=== PATIENT | female | born 1940 | race Caucasian/White ===

== ENCOUNTER 2016-12-08 09:08 | Outpatient (CLI) ==
[2015-01-05 14:37] VITALS: BMI 24.7
--- NOTE | 2016-12-08 10:00 | US ---
EXAM: Ultrasound Aorta HISTORY: History of abdominal aortic aneurysm repair COMPARISON: 10/30/2015 TECHNIQUE: Ultrasound aorta was performed. FINDINGS: Evaluation is limited due to areas of bowel gas shadowing. Measurements are AP by transverse. Proximal aorta: 2.2 x 2.3 cm, previously 2.1 x 2.2 cm Mid aorta: 3.0 x 3.0 cm, previously 2.8 x 3.5 cm Distal aorta: 2.6 x 2.7 cm, previously 2.3 x 2.8 cm Right iliac: Not visualized due to bowel gas shadowing Left iliac: Not visualized due to bowel gas shadowing IMPRESSION: Aneurysmal dilation abdominal aorta measuring up to 3.0 cm. By history, patient has had prior abdominal aortic aneurysm repair.
--- NOTE | 2016-12-10 07:28 | MAMMO ---
EXAM: Digital screening mammogram HISTORY: Annual screening mammogram COMPARISON: Mammogram 03/16/2013 and 09/09/2011 FINDINGS: Bilateral CC and MLO views of the breasts were performed digitally and demonstrate hetero geneous breast density (50 - 75%). Evaluation is limited due to breast density. Nodular density in the outer left breast on LCC is unchanged dating back to 2010. There is no significant interval tequila nge. IMPRESSION: No new or suspicious nodule or calcification RECOMMENDATION: Annual screening mammogram BIRADS category II: Benign findings
== END 2016-12-08 09:09 | disposition home or self-care (01) ==
LOC: RAD 09:08
PROVIDERS: ATTEND Internal Medicine
DX: Z12.31 Encounter for screening mammogram for malignant neoplasm of breast (principal); I71.4 Abdominal aortic aneurysm, without rupture; Z98.890 Other specified postprocedural states
CPT/HCPCS: 76775

== ENCOUNTER 2018-01-25 06:42 | Day surgery (SDC) ==
[2015-01-05 14:37] VITALS: BMI 24.7
[2018-01-25 07:56] VITALS: TEMP 98.6
[2018-01-25] MEDS ORDERED: LIDOCAINE 1% 20 ML MDV ID STA (07:58)
[2018-01-25] MEDS ORDERED: DIPRIVAN 20 ML VIAL IVP ONE (09:00)
[2018-01-25] MEDS ORDERED: VERSED ONE (09:00)
--- NOTE | 2018-01-26 09:05 | OP ---
PROCEDURE: COLONOSCOPY TO THE CECUM WITH SNARE POLYPECTOMY. ENDOSCOPIST: Bren JACOB M.D. INDICATION: HISTORY OF POLYPS. INSTRUMENT: [employer]-190. MEDICATION: PER ANESTHESIA. PROCEDURE: The patient was positioned for colonoscopy. The digital rectal exam was negative. The colonoscope was inserted through the anus and advanced to the cecum. The cecum was identified using the ileocecal valve and the appendiceal orifice as landmarks. The scope was slowly withdrawn through an adequately prepped colon. [place] Bowel Prep Score = 9. Two polyps removed at the hepatic flexure, a 6 mm polyp and a 10 mm polyp both removed using snare cautery. The retroflex exam was otherwise normal. Diverticular disease noted in the left colon. The patient tolerated the procedure without immediate complication. Withdrawal time 9 minutes and 10 seconds. PLAN: 1. Review pathology with repeat colonoscopy in three years. CC: DR. XAVI ROBINS
[2018-01-26 13:48] VITALS: BP 146/65
== END 2018-01-25 09:55 | disposition home or self-care (01) ==
LOC: SURG 06:42
PROVIDERS: ATTEND Internal Medicine Gastroenterology
DX: Z09 Encounter for follow-up examination after completed treatment for conditions other than malignant neoplasm (principal); Z86.010 Personal history of colon polyps; D12.3 Benign neoplasm of transverse colon; K57.30 Diverticulosis of large intestine without perforation or abscess without bleeding

== ENCOUNTER 2020-07-17 09:51 | Inpatient (IN) ==
[2020-07-17] MEDS ORDERED: NITROSTAT SL PRN (10:01)
[2020-07-17] MEDS ORDERED: VISTARIL INJ IM PRN (10:01)
[2020-07-17] MEDS ORDERED: ATROPINE SULFATE PFS IVP PRN (10:01)
[2020-07-17] MEDS ORDERED: TYLENOL PO PRN (10:01)
[2020-07-17 10:27] LABS: ABG PH 7.509 (7.35-7.45)
[2020-07-17 10:28] LABS: ABG BASE EXCESS -4 (-2.0-2.0); ABG HCO3 19.5 (22.0-26.0); ABG PCO2 24.5 mmHg (35-45); ABG TCO2 20 (22.0-28.0)
[2020-07-17 10:53] VITALS: BMI 22.4
[2020-07-17 11:02] LABS: BASOPHILS % (AUTO) 0.2 % (0.0-3.0); EOSINOPHILS # (AUTO) 0.1 K/ul (0.0-0.7); EOSINOPHILS % (AUTO) 0.7 % (0.0-7.0); HEMATOCRIT 26.4 % (37.0-47.0); HEMOGLOBIN 8.2 g/dl (12.0-16.0); IMMATURE GRANULOCYTE # (AUTO) 0.2 (0.0-1.0); IMMATURE GRANULOCYTE % (AUTO) 1.2 % (0.0-5.0); LYMPHOCYTES % (AUTO) 8.2 (10.0-50.0); MEAN CORPUSCULAR HGB CONC 31.1 (31.8-35.4); MEAN CORPUSCULAR VOLUME 84.1 fl (81.0-99.0); MONOCYTES # (AUTO) 0.8 K/uL (0.4-2.0); MONOCYTES % (AUTO) 6.2 (0-10); NEUTROPHILS # (AUTO) 10.4 K/ul (2.0-6.9); NEUTROPHILS % (AUTO) 83.5 % (42.2-75.2); PLATELET COUNT 264 10^3/uL (140-440); RDW COEFFICIENT OF VARIATION 13.6 % (11.6-14.8); RED BLOOD COUNT 3.14 10^6/ul (4.20-5.40); RETICULOCYTE % 1.76 %; RETICULOCYTE HEMOGLOBIN 23.9; WHITE BLOOD COUNT 12.39 K/ul (4.6-10.2)
[2020-07-17 11:14] LABS: ALANINE AMINOTRANSFERASE 26.9 U/L (0-35); ALBUMIN 3.2 g/dL (3.5-5.0); ALKALINE PHOSPHATASE 227.4 U/L (53-141); BLOOD UREA NITROGEN 40.6 mg/dL (7-17); CALCIUM 8.89 mg/dL (8.4-10.2); CARBON DIOXIDE 24.4 mmol/L (22-30.0); CHLORIDE 98.6 mmol/L (98-107); CREATININE 1.87 mg/dL (0.60-1.30); GLUCOSE 273.5 mg/dL (74-106); TOTAL PROTEIN 6.2 g/dL (6.3-8.2)
[2020-07-17 11:15] LABS: BILIRUBIN,TOTAL 0.88 mg/dL (0.2-1.3); CREATINE KINASE 37.6 U/L (30-135)
[2020-07-17 11:28] LABS: IRON 22.4 ug/dL (37-170)
[2020-07-17] MEDS ORDERED: CALCIUM 500 + VIT D 5 MCG (200 IU) TABLET PO SCH (11:30)
[2020-07-17] MEDS: HUMULIN R SUBCUT PRN ×3 (11:35→20:41)
[2020-07-17 11:37] LABS: % IRON SATURATION 9 %; TOTAL IRON BINDING CAPACITY 237 ug/dL (261-497)
[2020-07-17] MEDS: SODIUM CHLORIDE 1,000 ML IV SCH (12:17)
[2020-07-17 12:21] LABS: FOLATE > 20.00 ng/mL
[2020-07-17] MEDS: TRIGLIDE PO SCH (13:34)
[2020-07-17] MEDS: ZESTRIL PO SCH (13:34)
[2020-07-17] MEDS: ZOCOR PO SCH (13:34)
[2020-07-17] MEDS: MULTIVITAMIN TABLET PO SCH (13:35)
[2020-07-17] MEDS: FERROUS SULFATE PO SCH (13:35)
[2020-07-17] MEDS: COREG PO SCH (13:35)
[2020-07-17 13:59] LABS: BILIRUBIN,URINE Negative (NEGATIVE); CLARITY,URINE Clear (CLEAR); COLOR,URINE Yellow (YELLOW); GLUCOSE, URINE (UA) 2+ (NEGATIVE); KETONES,URINE Negative (NEGATIVE); LEUKOCYTE ESTERASE ,URINE Negative (NEGATIVE); NITRITE,URINE Negative (NEGATIVE); PH,URINE 6.5 (5-9); URINE, BLOOD Negative (NEGATIVE); UROBILINOGEN,URINE 0.2 (0.2)
--- NOTE | 2020-07-17 14:10 | CT ---
EXAM: CT of the chest without contrast History: Short of breath Comparison: CT abdomen pelvis 07/17/2020 Technique: Multiplanar CT images through the thorax were obtained without the administration of IV c ontrast Findings: Heart is mildly enlarged. Coronary calcifications. No thoracic aortic aneurysm. No chio cardial effusion. No axillary or mediastinal lymphadenopathy. Evaluation for hilar lymph nodes is l imited due to lack of contrast administration. There is no consolidated pneumonia. Multiple sub-therese timeter bilateral lung nodules measuring up to 8 mm bilaterally. No pleural fluid and no pneumothora x. For details in the upper abdomen, please see dedicated CT abdomen pelvis done on the same day. There are multiple metastatic liver lesions and there is inflammation adjacent to the pancreas. No acute osseous abnormalities. Impression: 1. Multiple sub-centimeter bilateral lung nodules are suspicious for metastasis. 2. Coronary artery disease 3. Liver metastasis
--- NOTE | 2020-07-17 14:26 | CT ---
Exam: CT abdomen pelvis without intravenous contrast. Comparison: 05/05/2019. Reason for exam: Anemia. FINDINGS: Image interpretation is limited by the lack of intravenous contrast. Parenchymal change consistent with chronic lung disease with multiple nodules in the partially imaged lung bases measuring up to 7 mm as seen on axial image #6 and 6.6 mm on axial image #9. Nodularity is seen in both left and right lung bases. Hepatic hypodensities are seen throughout the liver parenchyma. The spleen and adrenal glands appear grossly unremarkable. The tail and mid body of the pancreas appear enlarged with inflammatory changes seen adjacent to the pancreatic tail. Calcifications are seen in both left and right renal vasculature. No obvious ureterolithiasis or hyd ronephrosis. Hypodensities are seen in the splenic parenchyma with old granulomas disease. No evidence of bowel o bstruction. No bladder wall thickening. Ground-glass nodularity is seen within the mesenteric fat as seen on axial image 71. Partially calci fied infrarenal abdominal aortic aneurysm measuring up to 4.8 cm. Diverticular disease in the rectosigmoid without surrounding inflammatory change. Grade 1 anterior listhesis of L4 on L5. Impression: 1. Unexpected finding/unexpected result: Multiple hepatic hypodensities are seen throughout the zack er parenchyma incompletely characterized on this exam. Imaging findings are concerning for metastati c disease. Further evaluation is recommended. 2. Prominence of the mid body and tail of the pancreas. Findings can be seen with pseudocyst format ion, inflammation, and neoplasia. Further evaluation with MRI is recommended. 3. Multiple sub centimeter nodules are seen throughout the partially imaged right and left lower lob es. Please see CT imaging of the chest performed on the same day for further characterization. Findings are concern ing for metastatic disease.
--- NOTE | 2020-07-17 16:29 | CT ---
EXAM: CT of the head without contrast History: Weakness. Technique: Multiplanar CT images through the head were obtained without the administration of IV con trast Findings: The visualized paranasal sinuses and mastoid air cells are clear in general. No acute fatuma varial abnormalities. Intracranially the ventricular and cisternal spaces are normal in size, shape and configuration for a patient of this age. No dominant mass or midline shift. No hydrocephalous. No acute intracranial hemorrhage or abnormal extraaxial fluid collections. Impression: No acute intracranial process
[2020-07-17 19:15] LABS: CREATINE KINASE 29.2 U/L (30-135)
[2020-07-18] MEDS: SODIUM CHLORIDE 1,000 ML IV SCH (02:03)
[2020-07-18 05:27] LABS: BASOPHILS % (AUTO) 0.1 % (0.0-3.0); EOSINOPHILS # (AUTO) 0.2 K/ul (0.0-0.7); EOSINOPHILS % (AUTO) 1.9 % (0.0-7.0); HEMATOCRIT 21.9 % (37.0-47.0); HEMOGLOBIN 6.8 g/dl (12.0-16.0); IMMATURE GRANULOCYTE # (AUTO) 0.1 (0.0-1.0); IMMATURE GRANULOCYTE % (AUTO) 1.2 % (0.0-5.0); LYMPHOCYTES # (AUTO) 1.3 K/uL (0.60-3.4); MEAN CORPUSCULAR HGB CONC 31.1 (31.8-35.4); MEAN CORPUSCULAR VOLUME 83.6 fl (81.0-99.0); MONOCYTES # (AUTO) 0.7 K/uL (0.4-2.0); NEUTROPHILS # (AUTO) 6.6 K/ul (2.0-6.9); NEUTROPHILS % (AUTO) 73.8 % (42.2-75.2); PLATELET COUNT 199 10^3/uL (140-440); RDW COEFFICIENT OF VARIATION 13.6 % (11.6-14.8); RED BLOOD COUNT 2.62 10^6/ul (4.20-5.40); WHITE BLOOD COUNT 8.95 K/ul (4.6-10.2)
[2020-07-18 05:40] LABS: ALANINE AMINOTRANSFERASE 23.6 U/L (0-35); ALBUMIN 2.52 g/dL (3.5-5.0); ALKALINE PHOSPHATASE 192.7 U/L (53-141); ASPARTATE AMINO TRANSFERASE 46.5 U/L (14-36); BILIRUBIN,TOTAL 0.49 mg/dL (0.2-1.3); BLOOD UREA NITROGEN 35.9 mg/dL (7-17); CALCIUM 8.1 mg/dL (8.4-10.2); CARBON DIOXIDE 21.7 mmol/L (22-30.0); CHLORIDE 105.8 mmol/L (98-107); CREATININE 1.6 mg/dL (0.60-1.30); GLUCOSE 151.9 mg/dL (74-106); SODIUM 133.8 mmol/L (134.5-145); TOTAL PROTEIN 5.2 g/dL (6.3-8.2)
[2020-07-18] MEDS: HUMULIN R SUBCUT PRN (06:06)
[2020-07-18] MEDS ORDERED: NON-FORMULARY MEDICATION (Cyanocobalamin (Vitamin B-12) Tablet,Chewable) PO SCH (09:00)
[2020-07-18] MEDS ORDERED: CALCIUM CARBONATE VITAMIN D3 PO SCH (09:00)
[2020-07-18] MEDS ORDERED: [UNRECOGNIZED DRUG - OTHER] PO SCH (09:00)
[2020-07-18] MEDS: COREG PO SCH (09:20)
[2020-07-18] MEDS: ZESTRIL PO SCH (09:20)
--- NOTE | 2020-07-18 11:57 | HP ---
DATE OF SERVICE: 07/17/2020 REASON FOR HOSPITALIZATION/HISTORY OF PRESENT ILLNESS: 79 year old female admitted with shortness of breath, very weak and legs swollen. PAST MEDICAL HISTORY/PAST SURGICAL HISTORY: PAD, abnormal arterial study COPD Generalized ASHD Osteoarthritis knees, right greater than left AAA 12-15 Dr. Carpenter Left carotid stenosis Diabetes Mellitus type 2, A1c 9.2 04/14 Dyslipidemia Status post right pneumonectomy MAGI B12 deficiency Depression History of lung cancer History of hip pain Chronic kidney disease, stage 4 REVIEW OF SYSTEMS: CONSTITUTIONAL: No fever, Fatigue. HEENT: No sinus drainage, no sore throat. RESPIRATORY: Cough, no congestion. CARDIOVASCULAR: No atypical chest pain for coronary artery disease. No angina, CHF symptoms, palpitations. Shortness of breath. GASTROINTESTINAL: No melena or abdominal pain. No GERD. GENITOURINARY: No hematuria, no prostatism, no polyuria. MANAGER ELIGIBILITY: No blackout, no dizziness, no headache, no double vision. GAIT: Unsteady. MUSCULOSKELETAL: Osteoarthritis pain, no joint swelling. ENDOCRINE: No weight loss, Weight gain, 3 pounds. . SKIN: Not dry, no rash. PSYCHIATRIC: Not anxious, no depression, no suicidal thoughts, no homicidal thoughts. SOCIAL HISTORY: Marital Status: . Alcohol Usage: No. Tobacco Usage: No. MEDICATIONS: Fenofibrate 160mg PO daily Jardiance 25mg daily Coreg 12.5mg daily Lisinopril 10mg daily Simvastatin 40mg PO daily Iron 65mg PO daily B12 500mcg Calcium 600 with Vitamin D3 20mg Aspirin 81mg PO daily Lasix 20mg 2-3 weekly PRN ALLERGIES: No known allergies. PHYSICAL EXAMINATION: V/S: Pulse 106, blood pressure 122/64, temperature 98.1, oxygen saturation 99%. BMI 22.8, Weight 130. GENERAL APPEARANCE: Oriented times three. HEENT: Pale. NECK: No JVP, no bruits. RESPIRATORY: Decreased breath sounds. CARDIOVASCULAR: S1, S2, no S3, no murmur. No cyanosis, clubbing. No ascites. GI/ABDOMEN: No tenderness. Bowel sounds are active. EXTREMITIES: +2 bilateral lower extremity edema, pulses +1, equal. MANAGER ELIGIBILITY: Deep tendon reflexes, sensory, motor and gait all normal. RECTAL/PELVIC/PROSTATE: . ASSESSMENT: 1. Symptomatic anemia 2. Shortness of breath 3. Acute renal failure 4. Leg edema 5. PAD, abnormal arterial study 6. COPD 7. Generalized ASHD 8. Osteoarthritis knees, right greater than left 9. AAA 12-15 Dr. Carpenter 10.Left carotid stenosis 11.Diabetes Mellitus type 2, A1c 9.2 04/14 12. Dyslipidemia 13. Status post right pneumonectomy 14. MAGI 15. B12 deficiency 16. Depression 17. History of lung cancer 18. History of hip pain 19. Chronic kidney disease, stage 4 PLAN: 1. Admit 2. Routine telemetry orders 3. CBC and CMP now and daily 4. ABG on room air now 5. Anemia profile 6. CT chest, abdomen and pelvis without contrast 7. Start normal saline at 75cc an hour 8. Continue home medication 9. Hold PO Lasix 10.2D echo 11.O2 at 1-2 liters normal saline PRN 12.Elevate legs 13.Regular diet 14.Dr. Garvey sliding scale 15.Type and cross two units PRBC's and hold TIME SPENT: More than 70 minutes. MTDD
[2020-07-18] MEDS: MULTIVITAMIN TABLET PO SCH (15:06)
[2020-07-18] MEDS: JARDIANCE PO SCH (15:07)
[2020-07-18] MEDS: ZOCOR PO SCH (15:08)
[2020-07-18] MEDS: ASPIRIN EC PO SCH (15:08)
[2020-07-18] MEDS: FERROUS SULFATE PO SCH (15:09)
[2020-07-18] MEDS: TRIGLIDE PO SCH (15:09)
[2020-07-18] MEDS: NON-FORMULARY MEDICATION (Cyanocobalamin (Vitamin B-12) 500 mcg Tablet) PO SCH (15:10)
--- NOTE | 2020-07-18 16:10 | MRI ---
EXAM: MRI abdomen without and with contrast/MRCP HISTORY: Attention pancreas, prominence of the mid pancreatic body and tail TECHNIQUE: Multiplanar, multisequence without and following the administration of intravenous Dotare m, 5 mL using a dynamic contrast enhanced protocol. MRCP is acquired with 3-D volume rendered images of the biliary tree. COMPARISON: CT abdomen from 07/17/2020 FINDINGS: The images are limited due to a low field strength open magnet and respiratory motion sid fact. The heart size is normal. No pericardial or pleural effusions are appreciated. There is evidence of fat or iron deposition within the liver. There are multiple hypodense metastati c lesions throughout the liver. Lesion hepatic segment II/III is 3.9 x 2.9 cm. A lesion in hepatic segment VII is 3.9 x 3.7 cm. Multiple additional smaller lesions are noted throughout the liver. Th e lesions are hyperenhancing and demonstrate diffusion restriction. These lesions have intermediate increased T2 signal. There is a lesion in the pancreatic tail demonstrate diffusion restriction and hypo enhancement measu ring 2.8 x 2.7 x 2.1 cm. The pancreas otherwise has normal signal. The gallbladder is free of intraluminal filling defects. There is no biliary dilatation. The pancre atic duct has normal signal. The spleen has normal size and signal. The adrenal glands are normal. No suspicious renal lesions a re evident. There is no ureteral pelvicaliectasis. A few simple acquired renal cysts are suggested. A fusiform infrarenal abdominal aortic aneurysm is 35.6 x 45.5 mm. A small volume of ascites is note d diffusely. No suspicious lymphadenopathy is detected. The visible intestines have normal signal and caliber without evidence of obstruction or acute inflam mation. Diverticula arise from large bowel without MR evidence of diverticulitis. A few benign vertebral hemangiomas are suggested. There are modic endplate signal changes. No suspi cious marrow signal is visualized. IMPRESSION: 1. Multiple metastatic hepatic lesions. 2. Lesion at the tail the pancreas could represent primary pancreatic adenocarcinoma or metastatic l esion. 3. Small volume of ascites. 4. Fusiform infrarenal abdominal aneurysm measuring 35.6 x 45.5 mm. 5. Colonic diverticulosis without MR evidence of diverticulitis. 6. Exam limited by low field magnet strength and patient respiratory motion.
[2020-07-19] MEDS: SODIUM CHLORIDE 1,000 ML IV SCH ×2 (01:38→09:36)
[2020-07-19 05:43] VITALS: BP 127/67; TEMP 98.1
[2020-07-19 05:48] LABS: BASOPHILS % (AUTO) 0.3 % (0.0-3.0); EOSINOPHILS # (AUTO) 0.3 K/ul (0.0-0.7); EOSINOPHILS % (AUTO) 2.5 % (0.0-7.0); HEMATOCRIT 30.4 % (37.0-47.0); HEMOGLOBIN 9.7 g/dl (12.0-16.0); IMMATURE GRANULOCYTE # (AUTO) 0.2 (0.0-1.0); IMMATURE GRANULOCYTE % (AUTO) 1.5 % (0.0-5.0); LYMPHOCYTES # (AUTO) 1.6 K/uL (0.60-3.4); LYMPHOCYTES % (AUTO) 13.3 (10.0-50.0); MEAN CORPUSCULAR HGB CONC 31.9 (31.8-35.4); MEAN CORPUSCULAR VOLUME 85.9 fl (81.0-99.0); MONOCYTES % (AUTO) 8.3 (0-10); NEUTROPHILS % (AUTO) 74.1 % (42.2-75.2); PLATELET COUNT 202 10^3/uL (140-440); RED BLOOD COUNT 3.54 10^6/ul (4.20-5.40); WHITE BLOOD COUNT 12.18 K/ul (4.6-10.2)
[2020-07-19 06:04] LABS: ALANINE AMINOTRANSFERASE 31.8 U/L (0-35); ALBUMIN 2.42 g/dL (3.5-5.0); ALKALINE PHOSPHATASE 224.4 U/L (53-141); ASPARTATE AMINO TRANSFERASE 64.9 U/L (14-36); BILIRUBIN,TOTAL 1.08 mg/dL (0.2-1.3); BLOOD UREA NITROGEN 28.6 mg/dL (7-17); CALCIUM 8.27 mg/dL (8.4-10.2); CARBON DIOXIDE 20.5 mmol/L (22-30.0); CHLORIDE 105.9 mmol/L (98-107); CREATININE 1.4 mg/dL (0.60-1.30); GLUCOSE 161.1 mg/dL (74-106); SODIUM 133.1 mmol/L (134.5-145); TOTAL PROTEIN 5.03 g/dL (6.3-8.2)
[2020-07-19] MEDS ORDERED: LASIX IVP STA (08:09)
--- NOTE | 2020-07-19 08:44 | PN ---
DATE OF SERVICE: 07/18/2020 SUBJECTIVE: 79 year old white female hospitalized with symptomatic anemia. The patient's hgb is down to 6.8, hct 21.9. She is feeling extremely tired and weakness with shortness of breath. She is going to have type and cross match and two units to be transfused after her MRI is done. The patient's daughter, Debbie is present in the room and the patient to be discussed with her also. REVIEW OF SYSTEMS: CONSTITUTIONAL: No night sweats. No fever or chills. Weakness and fatigue. HEENT: Eyes: No visual changes. No eye pain. No eye discharge. ENT: No runny nose. No epistaxis. No sinus pain. No sore throat. No odynophagia. No congestion. RESPIRATORY: No cough, no congestion. No hemoptysis. Shortness of breath on exertion. CARDIOVASCULAR: No angina symptoms. No CHF symptoms. No atypical chest pain for CAD. No palpitations. No PND. No orthopnea. GASTROINTESTINAL: No abdominal pain. No nausea or vomiting. No diarrhea or constipation. No hematemesis. No hematochezia. Appetite is not that good for while. GENITOURINARY: No urgency. No frequency. No dysuria. No hematuria. No obstructive symptoms. No discharge. No pain. No significant abnormal bleeding. MUSCULOSKELETAL: No musculoskeletal pain; no joint swelling. Weakness by the patient, generalized. NEUROLOGICAL: No headache. No neck pain. No syncope. No seizures. No dizziness. PSYCHIATRIC: Not anxious. No depression. No suicidal thoughts. No homicidal thoughts. SKIN: No rash. No lesions. No wounds. ENDOCRINE: Weight loss. No weight gain. HEMATOLOGIC/LYMPHATIC: No purpura. No petechiae. No prolonged or excessive bleeding. No palpable lymph nodes. PHYSICAL EXAMINATION: VITAL SIGNS: [id number] 98.2, pulse 26, respiratory rate 20, blood pressure 117/68 and pulse ox 99%. HEENT: Head normocephalic, atraumatic. Eyes: Extraocular muscles are intact. Pupils are equal, round and reactive to light and accommodation. Ears: No lesions. Nose appeared normal. Throat: No exudate or erythema. NECK: Supple. No JVD, no carotid bruit. No lymphadenopathy or thyromegaly. LUNGS: Clear to auscultation. Percussion note normal. Chest symmetrical. HEART: S1, S2, no S3. No murmurs. No cyanosis or clubbing. No ascites. Pulses: Dorsalis pedis and posterior tibial pulses +1 to +2 bilaterally. ABDOMEN: Soft. Nontender. Bowel sounds active. No CVA tenderness. No mass felt. EXTREMITIES: No edema. Full range of motion of all extremities, equal. NEUROLOGIC: No focal deficit. Cranial nerves II through XII are grossly intact. No headache, no double vision or headache. SKIN: Not dry. Intact. Turgor - normal. The patient looks pale. LYMPHATIC: No palpable lymph nodes/no lymphedema. MUSCULOSKELETAL: Normal joints with no swelling. Muscle tone is normal. LABS: hgb 6.8, hct 21.9, WBC 8,900 normal differential, creatinine 1.6, BUN 35, potassium 4 ASSESSMENT: 1. Anemia likely from metastatic cancer of the lung and liver likely primary is pancreatic cancer 2. Kidney failure has improved, estimated GFR now is 31 with creatinine of 1.6. It was 2.2 begin with. The patient and daughter, Debbie were explained in detail about metastatic cancer of the lung and liver primary being likely in pancreas. Reports still pending when I talked to them but CT of the abdomen did reveal possibility of pancreatic cancer. The patient's sister had pancreatic cancer. A couple of years the patient has declined any procedures. Lately she has declined workup for her medical problems she had. In face she was very reluctant to get into the hospital. Already had Dr. Yi appointment scheduled because of work up for anemia, she had declined any EGD or colonoscopy. She may not need now. The patient's prognosis is poor. Explained to both the patient and the daughter. CONDITION: Stable. TIME SPENT: More than 60 minutes. EXTENSIVE Plan and coordination of the patient's care discussed in the presence of nurse. SHIMON
[2020-07-19] MEDS: JARDIANCE PO SCH (08:46)
[2020-07-19] MEDS: ZOCOR PO SCH (08:46)
[2020-07-19] MEDS: NON-FORMULARY MEDICATION (Cyanocobalamin (Vitamin B-12) 500 mcg Tablet) PO SCH (08:46)
[2020-07-19] MEDS: FERROUS SULFATE PO SCH (08:47)
[2020-07-19] MEDS: TRIGLIDE PO SCH (08:47)
[2020-07-19] MEDS: ZESTRIL PO SCH (08:47)
[2020-07-19] MEDS: COREG PO SCH (08:47)
[2020-07-19] MEDS: ASPIRIN EC PO SCH (08:47)
[2020-07-19] MEDS: MULTIVITAMIN TABLET PO SCH (08:47)
--- NOTE | 2020-07-19 11:32 | CM.DICTOOL ---
ADMISSION: 07/17/20 09:51 DISCHARGE: 2019 DATE OF SERVICE: 07/19/20 FINAL DIAGNOSIS SYMPTOMATIC ANEMIA, TRANSFUSION 2 UNITS PACKED CELLS METASTATIC LIVER LESIONS, MULTIPLE PER MRI PANCREATIC LESION, ADENOCARCINOMA VS METASTATIC LESION BILATERAL LUNG NODULES, LIKELY METASTATIC HISTORY: LUNG CANCER, RIGHT UPPER LOBE CAD COPD CKD, STAGE 4 ASHD AAA, 35.6 X 45.5 MM CAROTID STENOSIS, LEFT DIABETES, TYPE 2 (A1C 9.27 MARCH 2020) DYSLIPIDEMIA GENERALIZED ANXIETY DISORDER B12 DEFICIENCY DEPRESSION DIVERTICULOSIS HISTORY OF HEPATITIS B LEFT NEPHROLITHIASIS, NON-OBSTRUCTING OSTEOARTHRITIS, KNEES PERIPHERAL ARTERY DISEASE (ABNORMAL ARTERIAL STUDY) LOBECTOMY, RIGHT UPPER LOBE HYSTERECTOMY COLONOSCOPY, DR. JACOB (2018) LAST VITALS Temp Pulse Resp BP Pulse Ox 98.1 F 97 H 24 127/67 97 07/19/20 05:41 07/19/20 05:41 07/19/20 05:41 07/19/20 05:41 07/19/20 09:59 TAKE THESE MEDICATIONS AT HOME Acetaminophen (Acetaminophen 1000 Mg Tablet) 650 mg PO Q6H PRN PRN Reason: /Headache/Pain Aspirin (Aspirin 81 Mg Tablet.) 81 mg PO DAILYWM [facility] Last Admin: 07/19/20 08:47 Dose: 81 mg Documented by: Lasix 20 mg PO 2-3 TIMES PER WEEK PRN LEG SWELLING Last Admin: 20 mg IV 07/19/2020 Carvedilol (Carvedilol 12.5 Mg Tablet) 12.5 mg PO DAILYWM [facility] Last Admin: 07/19/20 08:47 Dose: 12.5 mg Documented by: Empagliflozin (Empagliflozin 10 Mg Tablet) 25 mg PO DAILY [facility] Last Admin: 07/19/20 08:46 Dose: 25 mg Documented by: Fenofibrate (Fenofibrate 160 Mg Tablet) 160 mg PO DAILY [facility] Last Admin: 07/19/20 08:47 Dose: 160 mg Documented by: Ferrous Sulfate (Ferrous Sulfate 324 Mg Tablet.) 324 mg PO DAILY [facility] Last Admin: 07/19/20 08:47 Dose: 324 mg Documented by: Lisinopril (Lisinopril 10 Mg Tablet) 10 mg PO DAILY [facility] Last Admin: 07/19/20 08:47 Dose: 10 mg Documented by: Multivitamins (Multivitamin 1 Tab) 1 tab PO DAILY [facility] Last Admin: 07/19/20 08:47 Dose: 1 tab Documented by: Non-Formulary Medication (Ca-D3-Mag Ov-Ifwz-Ano-Sloan-Bor [Calcium 600-D3 Plus (Mag-Zinc)]) 1 tab PO DAILY [facility] Last Admin: 07/19/20 08:46 Dose: 1 tab Documented by: Non-Formulary Medication (Cyanocobalamin (Vitamin B-12)) 500 mcg PO DAILY [facility] Last Admin: 07/19/20 08:46 Dose: 500 mcg Documented by: Simvastatin (Simvastatin 40 Mg Tablet) 40 mg PO DAILY [facility] Last Admin: 07/19/20 08:46 Dose: 40 mg Documented by: ALLERGIES No Known Allergies Allergy (Verified 05/16/20 09:05) DISCONTINUED MEDICATIONS NONE NEW PRESCRIPTIONS: NONE SMOKING: NOT APPLICABLE DISEASE SPECIFIC EDUCATION: TEST RESULTS DISCUSSED WITH PATIENT AND FAMILY MEMBERS APPOINTMENTS LAB REVIEW: 07/19/20 05:28 07/19/20 05:28 07/19/20 05:28: Sodium 133.1 L, Potassium 4.32, Chloride 105.9, Carbon Dioxide 20.5 L, Anion Gap 11.02, BUN 28.6 H, Creatinine 1.40 H, Estimated GFR (MDRD) 36.00, BUN/Creatinine Ratio 20.42, Glucose 161.1 H, Calcium 8.27 L, Total Bilirubin 1.08, AST 64.9 H, ALT 31.8, Alkaline Phosphatase 224.4 H D, Total Protein 5.03 L, Albumin 2.42 L, Globulin 2.61, Albumin/Globulin Ratio 0.92 07/19/20 05:28: WBC 12.18 H, RBC 3.54 L, Hgb 9.7 L, Hct 30.4 L, MCV 85.9, MCH 27.4, MCHC 31.9, RDW Coeff of Amira 14.0, Plt Count 202, Immature Gran % (Auto) 1.5, Neut % (Auto) 74.1, Lymph % (Auto) 13.3, [place] % (Auto) 8.3, Eos % (Auto) 2.5, Baso % (Auto) 0.3, Neut # (Auto) 9.0 H, Lymph # (Auto) 1.6, [place] # (Auto) 1.0, Eos # (Auto) 0.3, Baso # (Auto) 0.0, Immature Gran # (Auto) 0.2 07/18/20 22:30: Hgb 10.0 L D, Hct 31.0 L D 07/17/20 10:53: Blood Type O NEGATIVE, Antibody Screen Negative, Crossmatch (AHG) See Detail PLAN: DISCHARGE HOME DIET: REGULAR TOLERATED ACTIVITY: MAY RESUME TOLERATED ELEVATE LOWER EXTREMITIES AT NIGHT AND WHEN SITTING AN APPOINTMENT IS SCHEDULED WITH DR. HURLEY/SAMMY GARCIA APRN/ALONZO ZHAO APRN ON July AT 2:30 PM AN APPOINTMENT IS SCHEDULED WITH DR. GOMEZ ON July THE PATIENT ALSO HAS AN UPCOMING APPOINTMENT WITH DR. SANCHEZ, PULMONOLOGY AND DR. WATSON DATES AND TIMES ARE NOT KNOWN BY THE DAUGHTER (WRITTEN AT PATIENT'S HOME) CODE STATUS: FULL CODE MS. BARBOSA IS ALERT AND ORIENTED X 4. SHE IS HARD OF HEARING AND WEARS BILATERAL HEARING AIDES. SHE LIVES AT HOME WITH HER GRANDDAUGHTERS; AGE 13 AND 16. 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 MS. BARBOSA HAS THREE ADULT CHILDREN THAT ARE ATTENTIVE AND AWARE OF THE CT AND MRI FINDINGS. THE DAUGHTER WILL BE ACCOMPANYING THE PATIENT TO THE APPOINTMENT WITH DR. GOMEZ. MS. BARBOSA IS INDEPENDENT WITH ACTIVITIES OF DAILY LIVING. SHE IS CONTINENT OF BLADDER AND BOWEL. MS. BARBOSA TRANSFERS SELF WITHOUT DIFFICULTY TO THE CHAIR. SHE HAS BEEN AMBULATORY WITH [facility] OF ONE STAFF MEMBER WHILE IN THE HOSPITAL. MS. BARBOSA DISPLAYS A DECREASED APPETITE; 25-75% OF MEALS. SHE DENIES NAUSEA OR ABDOMINAL PAIN. SHE REPORTS AN "ODD" FEELING IN THE UPPER ABDOMINAL AREA. ALTHOUGH THE PATIENT IS SHORT OF AIR WITH EXERTION, SHE DOES NOT QUALIFY FOR HOME OXYGEN PER 3 STEP OXIMETRY. DIANE HURLEY MD
[2020-07-19] MEDS: HUMULIN R SUBCUT PRN (12:29)
--- NOTE | 2020-07-20 10:11 | PN ---
DATE OF SERVICE: 07/19/2020 SUBJECTIVE: 79 Year old white female hospitalized with asymptomatic anemia. She was also dehydration with renal failure. The patient was given IV fluids. Kidney have improved from 2 creatinine to 1.4. Hydration status looks better. The patient was given two units of packed red cells because Hgb dropped to 6.5 with hct of 19. Now the hgb is 9.7 with hct of 30. Work up for anemia showed pancreatic cancer which has metastasized to liver and lungs. History of C of the lung and she was treated several years ago. REVIEW OF SYSTEMS: CONSTITUTIONAL: No night sweats. No fatigue, malaise, lethargy. No fever or chills. Weakness. Still not up to joviat. HEENT: Eyes: No visual changes. No eye pain. No eye discharge. ENT: No runny nose. No epistaxis. No sinus pain. No sore throat. No odynophagia. No congestion. RESPIRATORY: Cough with congestion very mild. No hemoptysis. Shortness of breath. CARDIOVASCULAR: No angina symptoms. No CHF symptoms. No atypical chest pain for CAD. No palpitations. No PND. No orthopnea. GASTROINTESTINAL: No abdominal pain. No nausea or vomiting. No diarrhea or constipation. No hematemesis. No hematochezia. GENITOURINARY: No urgency. No frequency. No dysuria. No hematuria. No obstructive symptoms. No discharge. No pain. No significant abnormal bleeding. MUSCULOSKELETAL: No musculoskeletal pain; no joint swelling. NEUROLOGICAL: No headache. No neck pain. No syncope. No seizures. No dizziness. PSYCHIATRIC: Not anxious. No depression. No suicidal thoughts. No homicidal thoughts. SKIN: No rash. No lesions. No wounds. ENDOCRINE: No unexplained weight loss. No weight gain. HEMATOLOGIC/LYMPHATIC: No anemia. No purpura. No petechiae. No prolonged or excessive bleeding. No palpable lymph nodes. PHYSICAL EXAMINATION: VITAL SIGNS: Temperature 98.1, pulse 97, respiratory rate 24, blood pressure 127/67 and pulse ox 98%. HEENT: Head normocephalic, atraumatic. Eyes: Extraocular muscles are intact. Pupils are equal, round and reactive to light and accommodation. Ears: No lesions. Nose appeared normal. Throat: No exudate or erythema. NECK: Supple. No JVD, no carotid bruit. No lymphadenopathy or thyromegaly. LUNGS:Decreased breath sounds but clear to auscultation. Percussion note normal. Chest symmetrical. HEART: S1, S2, no S3. No murmurs. No cyanosis or clubbing. No ascites. Pulses: Dorsalis pedis and posterior tibial pulses +1 to +2 bilaterally. ABDOMEN: Soft. Nontender. Bowel sounds active. No CVA tenderness. No mass felt. EXTREMITIES: No edema. Full range of motion of all extremities, equal. NEUROLOGIC: No focal deficit. Cranial nerves II through XII are grossly intact. No headache, no double vision or headache. SKIN: Not dry. Intact. Turgor - normal. Color looks somewhat better. LYMPHATIC: No palpable lymph nodes/no lymphedema. MUSCULOSKELETAL: Normal joints with no swelling. Muscle tone is normal. LABS: hgb 9.7, hct 30, WBC 12,000 with normal differential,creatinine 1.4, BUN 28, potassium 4.3 ASSESSMENT: 1. Symptomatic anemia with two units of packed red cells seems to be stable.No evidence of active GI bleed 2. C of the pancreas likely from MRI with metastasis to the liver and lungs. The patient has separate C of the lung several years ago which was resected 3. Severe chronic lung disease with peripheral arterial disease 4. Dyslipidemia 5. Hypertension 6. Chronic kidney disease PLAN: 1. The patient's entire family, two sons and daughter present and they were all told in her presence that she has C of the pancreas likely. An appointment with Dr. Willard next week and advised to keep an appointment, they agreed. PROGNOSIS:Poor, discussed with the family. She doesn't want anything more to be done. She wants to go home and she will discharged home today. CONDITION: Stable. TIME SPENT: More than 30 minutes. Plan and coordination of the patient's care discussed in the presence of nurse. SHIMON
--- NOTE | 2020-07-20 10:34 | DS ---
DATE OF SERVICE: 07/19/2020 FINAL DIAGNOSIS: SYMPTOMATIC ANEMIA, TRANSFUSION 2 UNITS PACKED CELLS METASTATIC LIVER LESIONS, MULTIPLE PER MRI PANCREATIC LESION, ADENOCARCINOMA VS METASTATIC LESION BILATERAL LUNG NODULES, LIKELY METASTATIC HISTORY: LUNG CANCER, RIGHT UPPER LOBE CAD COPD CKD, STAGE 4 ASHD AAA, 35.6 X 45.5 MM CAROTID STENOSIS, LEFT DIABETES, TYPE 2 (A1C 9.27 MARCH 2020) DYSLIPIDEMIA GENERALIZED ANXIETY DISORDER B12 DEFICIENCY DEPRESSION DIVERTICULOSIS HISTORY OF HEPATITIS B LEFT NEPHROLITHIASIS, NON-OBSTRUCTING OSTEOARTHRITIS, KNEES PERIPHERAL ARTERY DISEASE (ABNORMAL ARTERIAL STUDY) LOBECTOMY, RIGHT UPPER LOBE HYSTERECTOMY COLONOSCOPY, DR. JACOB (2018) LAST VITALS: Temp Pulse Resp BP Pulse Ox 98.1 F 97 H 24 127/67 97 07/19/20 05:41 07/19/20 05:41 07/19/20 05:41 07/19/20 05:41 07/19/20 09:59 DISCHARGE INSTRUCTIONS: DISCHARGE HOME. AN APPOINTMENT IS SCHEDULED WITH DR. HURLEY/SAMMY GARCIA APRN/ALONZO ZHAO APRN ON July AT 2:30 PM. AN APPOINTMENT IS SCHEDULED WITH DR. WILLARD ON July. THE PATIENT ALSO HAS AN UPCOMING APPOINTMENT WITH DR. SANCHEZ, PULMONOLOGY AND DR. WATSON DATES AND TIMES ARE NOT KNOWN BY THE DAUGHTER (WRITTEN AT PATIENT'S HOME). CODE STATUS: FULL CODE TAKE THESE MEDICATIONS AT HOME: Acetaminophen (Acetaminophen 1000 Mg Tablet) 650 mg PO Q6H PRN PRN Reason: /Headache/Pain Aspirin (Aspirin 81 Mg Tablet.) 81 mg PO DAILYWM [facility] Last Admin: 07/19/20 08:47 Dose: 81 mg Documented by: Lasix 20 mg PO 2-3 TIMES PER WEEK PRN LEG SWELLING Last Admin: 20 mg IV 07/19/2020 Carvedilol (Carvedilol 12.5 Mg Tablet) 12.5 mg PO DAILYWM [facility] Last Admin: 07/19/20 08:47 Dose: 12.5 mg Documented by: Empagliflozin (Empagliflozin 10 Mg Tablet) 25 mg PO DAILY [facility] Last Admin: 07/19/20 08:46 Dose: 25 mg Documented by: Fenofibrate (Fenofibrate 160 Mg Tablet) 160 mg PO DAILY [facility] Last Admin: 07/19/20 08:47 Dose: 160 mg Documented by: Ferrous Sulfate (Ferrous Sulfate 324 Mg Tablet.) 324 mg PO DAILY [facility] Last Admin: 07/19/20 08:47 Dose: 324 mg Documented by: Lisinopril (Lisinopril 10 Mg Tablet) 10 mg PO DAILY [facility] Last Admin: 07/19/20 08:47 Dose: 10 mg Documented by: Multivitamins (Multivitamin 1 Tab) 1 tab PO DAILY [facility] Last Admin: 07/19/20 08:47 Dose: 1 tab Documented by: Non-Formulary Medication (Ca-D3-Mag Ip-[id number]-Sloan-Bor [Calcium 600-D3 Plus (Mag-Zinc)]) 1 tab PO DAILY [facility] Last Admin: 07/19/20 08:46 Dose: 1 tab Documented by: Non-Formulary Medication (Cyanocobalamin (Vitamin B-12)) 500 mcg PO DAILY [facility] Last Admin: 07/19/20 08:46 Dose: 500 mcg Documented by: Simvastatin (Simvastatin 40 Mg Tablet) 40 mg PO DAILY [facility] Last Admin: 07/19/20 08:46 Dose: 40 mg Documented by: ALLERGIES: No Known Allergies Allergy (Verified 05/16/20 09:05) DISCONTINUED MEDICATIONS: NONE NEW PRESCRIPTIONS: NONE SMOKING: NOT APPLICABLE DISEASE SPECIFIC EDUCATION: TEST RESULTS DISCUSSED WITH PATIENT AND FAMILY MEMBERS APPOINTMENTS LAB REVIEW: 07/19/20 05:28 07/19/20 05:28 07/19/20 05:28: Sodium 133.1 L, Potassium 4.32, Chloride 105.9, Carbon Dioxide 20.5 L, Anion Gap 11.02, BUN 28.6 H, Creatinine 1.40 H, Estimated GFR (MDRD) 36.00, BUN/Creatinine Ratio 20.42, Glucose 161.1 H, Calcium 8.27 L, Total Bilirubin 1.08, AST 64.9 H, ALT 31.8, Alkaline Phosphatase 224.4 H D, Total Protein 5.03 L, Albumin 2.42 L, Globulin 2.61, Albumin/Globulin Ratio 0.92 07/19/20 05:28: WBC 12.18 H, RBC 3.54 L, Hgb 9.7 L, Hct 30.4 L, MCV 85.9, MCH 27.4, MCHC 31.9, RDW Coeff of Amira 14.0, Plt Count 202, Immature Gran % (Auto) 1.5, Neut % (Auto) 74.1, Lymph % (Auto) 13.3, Bleckley % (Auto) 8.3, Eos % (Auto) 2.5, Baso % (Auto) 0.3, Neut # (Auto) 9.0 H, Lymph # (Auto) 1.6, Bleckley # (Auto) 1.0, Eos # (Auto) 0.3, Baso # (Auto) 0.0, Immature Gran # (Auto) 0.2 07/18/20 22:30: Hgb 10.0 L D, Hct 31.0 L D 07/17/20 10:53: Blood Type O NEGATIVE, Antibody Screen Negative, Crossmatch (AHG) See Detail DIET: REGULAR TOLERATED ACTIVITY: MAY RESUME TOLERATED ELEVATE LOWER EXTREMITIES AT NIGHT AND WHEN SITTING HOSPITAL COURSE: 79 year old white female hospitalized with symptomatic anemia. The patient was given 2 units of packed red cell. Her hgb from 6.5 came up to 9.7. No evidence of active GI bleed. 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 The patient's prognosis is poor. The patient already has independent C of the lung resected on the right. She has several other medical problems. In any case the patient has decided not to pursue the thing further but she agreed to see Dr. Willard next week. CONDITION: Stable. PROGNOSIS: Extremely. She understands that. The patient wants DNR. TIME SPENT: More than 60 minutes. MTDD
--- NOTE | 2020-07-20 10:34 | PN ---
07/17/2020: Level 5 07/18/2020: Extensive 07/19/2020: D as in discharge MTDD
== END 2020-07-19 14:10 | disposition home or self-care (01) | DRG 812 ==
LOC: MEDSURG B 09:51
PROVIDERS: ADMIT Internal Medicine; ATTEND Internal Medicine